=== PATIENT | male | born 2000 | race African-American/Black ===

== ENCOUNTER 2018-05-20 09:00 | Emergency (ER) | payer MEDICAID, OTHER ==
[~2018-05-20] VITALS: Ht 182.9 cm; Wt 65.8 kg
[2018-05-20 09:25] VITALS: BP 124/55
== END 2018-05-20 11:14 | disposition left against medical advice (07) ==
LOC: ER 09:03
DX: M54.5 Low back pain (principal); Z53.21 Procedure and treatment not carried out due to patient leaving prior to being seen by health care provider; V49.9XXA Car occupant (driver) (passenger) injured in unspecified traffic accident, initial encounter; Y93.89 Activity, other specified; Y99.8 Other external cause status; Y92.89 Other specified places as the place of occurrence of the external cause